=== PATIENT | male | born 1995 | race Two or more races ===

== ENCOUNTER 2022-02-24 22:59 | Inpatient (IN) | payer OTHER ==
[~2022-02-24] VITALS: Ht 180.3 cm; Wt 127.0 kg
[2022-02-24] MEDS ORDERED: LOSARTAN POTASS50 MG PO (23:55)
[2022-03-05] MEDS ORDERED: INTESTINEX680 M1 PO (19:07)
[2022-03-05] MEDS ORDERED: CLEOCIN HCL300 MG PO (19:07)
[2022-03-05] MEDS ORDERED: LEVOFLOXACIN750 MG PO (19:07)
[2022-03-05] MEDS ORDERED: COZAAR50 MG PO (19:07)
== END 2022-03-06 07:48 | disposition home or self-care (01) | DRG 194 ==
LOC: ER 22:59 → MEDJ 02-25 16:59 → SEC-K 02-25 16:59 → MEDJ 02-25 19:01
PROVIDERS: ADMIT Internal Medicine; ATTEND Internal Medicine
PROC: BW24ZZZ Computerized Tomography (CT Scan) of Chest and Abdomen (ICD-10-PCS; principal; 2022-02-25)
PROC: BW24ZZZ Computerized Tomography (CT Scan) of Chest and Abdomen (ICD-10-PCS; 2022-03-04)
DX: J18.9 Pneumonia, unspecified organism (principal); J45.21 Mild intermittent asthma with (acute) exacerbation; R09.02 Hypoxemia; I10 Essential (primary) hypertension; Z20.822 Contact with and (suspected) exposure to COVID-19; E66.01 Morbid (severe) obesity due to excess calories; Z68.39 Body mass index [BMI] 39.0-39.9, adult